=== PATIENT | male | born 1950 | race Caucasian/White ===

== ENCOUNTER 2023-06-16 23:19 | Observation (INO) | payer MEDICARE ==
[2023-06-16] MEDS ORDERED: SODIUM CHLORIDE 0.9% 1,000 ML IV STA (23:57)
--- NOTE | 2023-06-17 | ED ---
General Adult HPI - General Chief complaint: Syncope Stated complaint: Syncope Time Seen by Provider: 06/16/23 23:30 Source: patient, RN notes reviewed, old records reviewed Mode of arrival: EMS Limitations: no limitations - History of Present Illness Initial comments: 73-year-old male with syncopal episode while using the toilet. This was a brief episode approximately 1 minute according to his . He has had a diarrheal illness for the past 24 hours as well as fever. He denies respiratory symptoms. Denies abdominal pain. Denies vomiting. He has been fatigued with this illness. No chest pain. No palpitations. There was positive head trauma and the patient is complaining of neck pain. - Related Data Allergies Allergy/AdvReac Type Severity Reaction Status Date / Time No Known Allergies Allergy Verified 06/17/23 01:15 Review of Systems ROS Statement: Those systems with pertinent positive or pertinent negative responses have been documented in the HPI. ROS Other: All systems not noted in ROS Statement are negative. Past Medical History History of Any Multi-Drug Resistant Organisms: None Reported Past Psychological History: No Psychological Hx Reported Smoking Status: Never smoker Past Alcohol Use History: None Reported Past Drug Use History: None Reported General Exam Limitations: no limitations General appearance: alert, in no apparent distress Head exam: Present: other (Forehead abrasion) Eye exam: Present: normal appearance, PERRL Neck exam: Present: other (C-collar placed by paramedics) Respiratory exam: Present: normal lung sounds bilaterally. Absent: respiratory distress Cardiovascular Exam: Present: regular rate, normal rhythm GI/Abdominal exam: Present: soft. Absent: distended, tenderness, guarding, rebound Extremities exam: Present: normal inspection, normal capillary refill Neurological exam: Present: alert, oriented X3, CN II-XII intact. Absent: motor sensory deficit Psychiatric exam: Present: normal affect, normal mood Skin exam: Present: warm, dry Course Vital Signs 06/16/23 06/16/23 06/17/23 23:28 23:45 00:00 Temperature 97.7 F Pulse Rate 70 71 73 Respiratory 16 21 21 Rate Blood Pressure 136/63 136/83 127/58 O2 Sat by Pulse 97 97 97 Oximetry 06/17/23 06/17/23 06/17/23 00:15 00:30 01:00 Temperature Pulse Rate 75 74 70 Respiratory 20 20 18 Rate Blood Pressure 137/72 141/77 142/79 O2 Sat by Pulse 98 96 97 Oximetry 06/17/23 03:21 Temperature 97.8 F Pulse Rate 68 Respiratory 18 Rate Blood Pressure 118/69 O2 Sat by Pulse 98 Oximetry Medical Decision Making - Medical Decision Making Was pt. sent in by a medical professional or institution (, AMANUEL, MUCK OPERATOR, urgent care, hospital, or intermediate...) When possible be specific @ -No Did you speak to anyone other than the patient for history (EMS, parent, family, police, friend...)? What history was obtained from this source @ -No Did you review nursing and triage notes (agree or disagree)? Why? @ -I reviewed and agree with nursing and triage notes Were old charts reviewed (outside hosp., previous admission, EMS record, old EKG, old radiological studies, urgent care reports/EKG's, intermediate records)? Report findings @ -No old charts were reviewed Differential Diagnosis (chest pain, altered mental status, abdominal pain women, abdominal pain men, vaginal bleeding, weakness, fever, dyspnea, syncope, headache, dizziness, GI bleed, back pain, seizure, CVA, palpatations, mental health, musculoskeletal)? @ -[Differential Syncope: Valvular disease, hypertrophic cardiomyopathy, pulmonary embolism, tamponade, tachycardia, bradycardia, VA, hypovolemia, hemorrhage, dissection, anemia, intracranial hemorrhage, seizure, hypoglycemia, carbon monoxide poisoning, this is not meant to be an all-inclusive list. EKG interpreted by me (3pts min.). @ -Sinus rhythm rate of 74, NJ interval 200, QRS duration 111, QTC 447, no ST segment elevation. X-rays interpreted by me (1pt min.). @ -Chest x-ray negative for focal pneumonia, no acute findings. CT interpreted by me (1pt min.). @ -CT brain and cervical spine negative for traumatic injury. U/S interpreted by me (1pt. min.). @ -None done What testing was considered but not performed or refused? (CT, X-rays, U/S, labs)? Why? @ -None What meds were considered but not given or refused? Why? @ -None Did you discuss the management of the patient with other professionals (professionals i.e. , AMANUEL, MUCK OPERATOR, lab, RT, psych nurse, social sciences instructor, wave soldering machine operator, teacher, emergency response officer, case folder)? Give summary @ Sound Was smoking cessation discussed for >3mins.? @ -No Was critical care preformed (if so, how long)? @ -No Were there social determinants of health that impacted care today? How? (H omelessness, low income, unemployed, alcoholism, drug addiction, transportation, low edu. Level, literacy, decrease access to med. care, prison, rehab)? @ -No Was there de-escalation of care discussed even if they declined (Discuss DNR or withdrawal of care, Hospice)? DNR status @ -No What co-morbidities impacted this encounter? (DM, HTN, Smoking, COPD, CAD, Cancer, CVA, ARF, Chemo, Hep., AIDS, mental health diagnosis, sleep apnea, morbid obesity)? @ -None Was patient admitted / discharged? Hospital course, mention meds given and route, prescriptions, significant lab abnormalities, going to OR and other pertinent info. @73-year-old male with syncopal episode. Likely related to volume depletion from diarrhea. Patient had head trauma and momentary loss consciousness. CT brain negative for intracranial hemorrhage or mass effect, CT cervical spine negative for fracture subluxation. Patient has a macrocytic anemia. Normal white blood cell count. He has minor electrolyte abnormalities and hypoalbuminemia at 3.1. His urinalysis is negative. His viral swabs are negative. He has no extremity injury. No abdominal pain. No measured fever in the emergency department. He will be observed overnight for telemetry, hydration, and echo. Case discussed with Dr. Amaya Undiagnosed new problem with uncertain prognosis? @ -No Drug Therapy requiring intensive monitoring for toxicity (Heparin, Nitro, I nsulin, Cardizem)? @ -No Were any procedures done? @ -No Diagnosis/symptom? @ Syncope, dehydration Acute, or Chronic, or Acute on Chronic? @ Acute Uncomplicated (without systemic symptoms) or Complicated (systemic symptoms)? @ -default Side effects of treatment? @ -No Exacerbation, Progression, or Severe Exacerbation? @ -No Poses a threat to life or bodily function? How? (Chest pain, USA, VA, pneumonia, PE, COPD, DKA, ARF, appy, cholecystitis, CVA, Diverticulitis, Homicidal, Suicidal, threat to staff... and all critical care pts) @ -[Yes, syncope, arrhythmia - Lab Data Result diagrams: 06/17/23 00:15 06/17/23 00:15 Lab Results 06/17/23 06/17/23 06/17/23 Range/Units 00:15 00:15 00:15 WBC 9.5 (3.8-10.6) k/uL RBC 3.50 L (4.30-5.90) m/uL Hgb 13.5 (13.0-17.5) gm/dL Hct 39.7 (39.0-53.0) % MCV 113.4 H (80.0-100.0) fL MCH 38.5 H (25.0-35.0) pg MCHC 34.0 (31.0-37.0) g/dL RDW 15.1 (11.5-15.5) % Plt Count 120 L (150-450) k/uL MPV 8.0 Macrocytosis Marked A PT 11.4 (10.0-12.5) sec INR 1.1 (<1.2) APTT 22.7 (22.0-30.0) sec Sodium (137-145) mmol/L Potassium (3.5-5.1) mmol/L Chloride (98-107) mmol/L Carbon Dioxide (22-30) mmol/L Anion Gap mmol/L BUN (9-20) mg/dL Creatinine (0.66-1.25) mg/dL Est GFR (CKD-EPI)AfAm (>60 ml/min/1.73 sqM) Est GFR (CKD-EPI)NonAf (>60 ml/min/1.73 sqM) Glucose (74-99) mg/dL Calcium (8.4-10.2) mg/dL Magnesium (1.6-2.3) mg/dL Total Bilirubin (0.2-1.3) mg/dL AST (17-59) U/L ALT (4-49) U/L Alkaline Phosphatase (38-126) U/L Troponin I (0.000-0.034) ng/mL Total Protein (6.3-8.2) g/dL Albumin (3.5-5.0) g/dL Urine Color Yellow Urine Appearance Clear (Clear) Urine pH 5.5 (5.0-8.0) Ur Specific Randolph 1.025 (1.001-1.035) Urine Protein 1+ H (Negative) Urine Glucose (UA) Negative (Negative) Urine Ketones 1+ H (Negative) Urine Blood Small (Negative) Urine Nitrite Negative (Negative) Urine Bilirubin Negative (Negative) Urine Urobilinogen <2.0 (<2.0) mg/dL Ur Leukocyte Esterase Negative (Negative) Urine RBC 6 H (0-5) /hpf Urine WBC 1 (0-5) /hpf Hyaline Casts 7 H (0-2) /lpf Urine Mucus Few H (None) /hpf Influenza Type A (PCR) (Not Detectd) Influenza Type B (PCR) (Not Detectd) RSV (PCR) (Not Detectd) SARS-CoV-2 (PCR) (Not Detectd) 06/17/23 06/17/23 06/17/23 Range/Units 00:15 00:15 00:15 WBC (3.8-10.6) k/uL RBC (4.30-5.90) m/uL Hgb (13.0-17.5) gm/dL Hct (39.0-53.0) % MCV (80.0-100.0) fL MCH (25.0-35.0) pg MCHC (31.0-37.0) g/dL RDW (11.5-15.5) % Plt Count (150-450) k/uL MPV Macrocytosis PT (10.0-12.5) sec INR (<1.2) APTT (22.0-30.0) sec Sodium 138 (137-145) mmol/L Potassium 4.1 (3.5-5.1) mmol/L Chloride 111 H (98-107) mmol/L Carbon Dioxide 19 L (22-30) mmol/L Anion Gap 8 mmol/L BUN 24 H (9-20) mg/dL Creatinine 0.83 (0.66-1.25) mg/dL Est GFR (CKD-EPI)AfAm >90 (>60 ml/min/1.73 sqM) Est GFR (CKD-EPI)NonAf 86 (>60 ml/min/1.73 sqM) Glucose 123 H (74-99) mg/dL Calcium 7.4 L (8.4-10.2) mg/dL Magnesium 1.8 (1.6-2.3) mg/dL Total Bilirubin 0.9 (0.2-1.3) mg/dL AST 31 (17-59) U/L ALT 29 (4-49) U/L Alkaline Phosphatase 59 (38-126) U/L Troponin I <0.012 (0.000-0.034) ng/mL Total Protein 5.5 L (6.3-8.2) g/dL Albumin 3.1 L (3.5-5.0) g/dL Urine Color Urine Appearance (Clear) Urine pH (5.0-8.0) Ur Specific Randolph (1.001-1.035) Urine Protein (Negative) Urine Glucose (UA) (Negative) Urine Ketones (Negative) Urine Blood (Negative) Urine Nitrite (Negative) Urine Bilirubin (Negative) Urine Urobilinogen (<2.0) mg/dL Ur Leukocyte Esterase (Negative) Urine RBC (0-5) /hpf Urine WBC (0-5) /hpf Hyaline Casts (0-2) /lpf Urine Mucus (None) /hpf Influenza Type A (PCR) Not Detected (Not Detectd) Influenza Type B (PCR) Not Detected (Not Detectd) RSV (PCR) Not Detected (Not Detectd) SARS-CoV-2 (PCR) Not Detected (Not Detectd) Disposition Clinical Impression: Dehydration, Syncope and collapse Disposition: ADMITTED IP TO THIS [facility] Condition: Stable Is patient prescribed a controlled substance at d/c from ED?: No Referrals: None,Stated [Primary Care Provider] - 1-2 days Time of Disposition: 03:25
[2023-06-17 00:52] LABS: ALT 29 U/L (4-49); AST 31 U/L (17-59); African American GFR (CKD) >90 (>60 ml/min/1.73 sqM); Albumin 3.1 g/dL (3.5-5.0); Alkaline Phosphatase 59 U/L (38-126); Anion Gap 8 mmol/L; Blood Urea Nitrogen 24 mg/dL (9-20); Calcium 7.4 mg/dL (8.4-10.2); Carbon Dioxide 19 mmol/L (22-30); Chloride 111 mmol/L (98-107); Glucose 123 mg/dL (74-99); Magnesium 1.8 mg/dL (1.6-2.3); Non-African American GFR(CKD) 86 (>60 ml/min/1.73 sqM); Potassium 4.1 mmol/L (3.5-5.1); Sodium 138 mmol/L (137-145); Total Bilirubin 0.9 mg/dL (0.2-1.3); Total Protein 5.5 g/dL (6.3-8.2)
[2023-06-17 00:56] LABS: Basophils % (A) 0 %; Eosinophils % (A) 0 %; HCT 39.7 % (39.0-53.0); HGB 13.5 gm/dL (13.0-17.5); Lymphocytes # (A) 0.6 k/uL (1.0-4.8); Lymphocytes % (A) 6 %; MCH 38.5 pg (25.0-35.0); MCV 113.4 fL (80.0-100.0); Macrocytosis Marked; Monocytes # (A) 0.3 k/uL (0-1.0); Monocytes % (A) 4 %; Neutrophils # (A) 8.4 k/uL (1.3-7.7); Neutrophils % (A) 89 %; Platelet Count 120 k/uL (150-450); RDW 15.1 % (11.5-15.5); WBC 9.5 k/uL (3.8-10.6)
[2023-06-17 01:01] LABS: INR 1.1 (<1.2); Partial Thromboplastin Time 22.7 sec (22.0-30.0); Prothrombin Time 11.4 sec (10.0-12.5)
--- NOTE | 2023-06-17 01:01 | CT ---
EXAM: CT Head Without Intravenous Contrast CLINICAL HISTORY: ITS.REASON CT Reason: syncope TECHNIQUE: Axial computed tomography images of the head/brain without intravenous contrast. CTDI is 45.2 mGy and DLP is 1152 mGy-cm. This CT exam was performed using one or more of the following dose reduction techniques: automated exposure control, adjustment of the mA and/or kV according to patient size, and/or use of iterative reconstruction technique. COMPARISON: No relevant prior studies available. FINDINGS: No acute intracranial hemorrhage. No midline shift or mass effect. The territorial gregory-white matter differentiation is maintained throughout. Age-related cerebral volume loss. Periventricular and subcortical white matter hypoattenuation, consistent with chronic microangiopathy. The visualized orbits appear grossly unremarkable. The calvarium is intact. The visualized paranasal sinuses and mastoid air cells are grossly clear. IMPRESSION: No acute intracranial hemorrhage, midline shift, or mass effect. EXAM: CT Cervical Spine Without Intravenous Contrast CLINICAL HISTORY: ITS.REASON CT Reason: syncope TECHNIQUE: Axial computed tomography images of the cervical spine without intravenous contrast. CTDI is 18.8 mGy and DLP is 585.1 mGy-cm. This CT exam was performed using one or more of the following dose reduction techniques: automated exposure control, adjustment of the mA and/or kV according to patient size, and/or use of iterative reconstruction technique. COMPARISON: No relevant prior studies available. FINDINGS: The vertebral body heights are maintained. The craniocervical junction is intact. The atlanto-dens interval is maintained. The dens is intact. There is no spondylolisthesis. Multilevel cervical spondylosis and degenerative disc disease. Straightening of the cervical lordosis. The unenhanced neck soft tissues are grossly unremarkable. The visualized lung apices are grossly clear. IMPRESSION: No acute fracture or subluxation of the cervical spine.
--- NOTE | 2023-06-17 01:01 | XR ---
EXAM: XR Chest, 1 View CLINICAL HISTORY: ITS.REASON XR Reason: syncope TECHNIQUE: Frontal view of the chest. COMPARISON: No relevant prior studies available. FINDINGS: Lungs: Unremarkable. No consolidation. Pleural space: Unremarkable. No pneumothorax. Heart: Unremarkable. No cardiomegaly. Mediastinum: Unremarkable. Bones/joints: Unremarkable. IMPRESSION: Normal chest x-ray.
[2023-06-17 03:08] LABS: Hyaline Casts,Urine 7 /lpf (0-2); Mucus,Urine Few /hpf; RBC,Urine 6 /hpf (0-5); WBC,Urine 1 /hpf (0-5)
[2023-06-17 03:11] LABS: Appearance,Urine Clear (Clear); Bilirubin,Urine Negative (Negative); Blood,Urine Small (Negative); Color,Urine Yellow; Glucose,Urine (UA) Negative (Negative); Ketones,Urine 1+ (Negative); PH, Urine 5.5 (5.0-8.0); Protein,Urine 1+ (Negative); Specific Gravity,Urine 1.025 (1.001-1.035)
[2023-06-17 03:12] LABS: Leukocyte Esterase,Urine Negative (Negative); Nitrite,Urine Negative (Negative); Urobilinogen,Urine <2.0 mg/dL (<2.0)
[2023-06-17] MEDS ORDERED: NALOXONE 0.4 MG/ML 1 ML VIAL IV PRN (03:22)
[2023-06-17 03:52] LABS: Anisocytosis (M) Present; Poikilocytosis (M) Present
--- NOTE | 2023-06-17 04:10 | P.HPIM ---
History of Present Illness H&P Date: 06/17/23 Patient is a 73-year-old male with a PMH of hypothyroidism who presents to the emergency room after an episode of syncope with head trauma. Patient reports that over the past 2 days he has been experiencing diarrhea with a total of up to 10 bowel movements during this time. He was in [place] and traveled back yesterday. Reports that he slept most of the day yesterday and when he attempted to walk to the bathroom earlier today the last thing he remembers is walking in the restroom and his then being at his side as he woke up on the ground. She heard him fall and noted that he regained consciousness shortly after. He had immediate pain at the left side of his head. He denied experie ncing palpitations, chest discomfort, shortness of breath, nausea, or diaphoresis. Denied blood or mucous in stools. Also denied experiencing urinary incontinence or tongue biting. No prior history of seizures. No history of falls or loss of consciousness. Reports feeling diffusely weak at the time of interview. Denied further headache. Also denied visual disturbances, focal weakness, facial asymmetry, or abnormal speech. Patient reports that his last BM was prior to his loss of consciousness. He notes that diarrhea has improved significantly over the past 24 hours. Denied abdominal pain. Head/cervical spine CT in the emergency room was unremarkable. EKG revealed sinus rhythm at 74 bpm with moderate intraventricular conduction delay at [address]/T-wave changes noted as reviewed by me. Chest x-ray was unremarkable. Laboratory evaluation revealed macrocytosis of 113.4, platelet count 120, BUN 24, glucose 123, troponin less than 0.012, and unremarkable UA. ED documentation reviewed and case discussed with ED provider. Review of systems: Pertinent positives and negatives as discussed in HPI, a complete review of systems was performed and all other systems are negative. Physical examination: Vital signs reviewed General: non toxic, no distress, appears at stated age, overweight Derm: no unusual rashes/lesions, warm Head: Left frontal scalp ecchymosis, symmetric Eyes: EOMI, no lid lag, anicteric sclera, pupils equal round reactive to light ENT: Nose and ears atraumatic Neck: No cervical lymphadenopathy, trachea midline, supple Mouth: no lip lesion, mucus membranes moist Cardiovascular: S1S2 reg, no murmur, positive dorsalis pedis pulse bilateral, no edema Lungs: CTA bilateral, no rhonchi, no rales, no accessory muscle use Abdominal: soft, nontender to palpation, no guarding Ext: muscle strength 4 out of 5 in all 4 extremities grossly, no gross muscle atrophy, no contractures Neuro: CN II-XI grossly intact, no gross focal neuro deficits Psych: Alert, oriented, appropriate affect Assessment: Syncope, suspect hypotensive due to dehydration in setting of diarrhea Diarrhea, improving Macrocytosis Thromboctyopenia Chronic conditions: Hypothyroidism Imaging: Head/cervical spine CT in the emergency room was unremarkable. EKG revealed sinus rhythm at 74 bpm with moderate intraventricular conduction delay at [address]/T-wave changes noted as reviewed by me. Chest x-ray was unremarkable. Data Review: Laboratory evaluation revealed macrocytosis of 113.4, platelet count 120, BUN 24, glucose 123, troponin less than 0.012, and unremarkable UA. Plan: Cardiac monitoring Continue IV fluid with normal saline 75 mL/h Fall precautions Obtain echocardiogram Check B12 and folate levels Check stool lactoferrin C/w home meds once reconciled DVT prophylaxis: Lovenox Subq The patient is admitted with an anticipated less than 2 midnight stay for evaluation of syncope CODE STATUS: Full Code Discussed with: Patient Anticipated discharge place: Home Past Medical History History of Any Multi-Drug Resistant Organisms: None Reported Past Psychological History: No Psychological Hx Reported Smoking Status: Never smoker Past Alcohol Use History: None Reported Past Drug Use History: None Reported Medications and Allergies Allergies Allergy/AdvReac Type Severity Reaction Status Date / Time No Known Allergies Allergy Verified 06/17/23 01:15 Physical Exam Vitals: Vital Signs Temp Pulse Resp BP Pulse Ox 06/17/23 03:21 97.8 F 68 18 118/69 98 06/17/23 01:00 70 18 142/79 97 06/17/23 00:30 74 20 141/77 96 06/17/23 00:15 75 20 137/72 98 06/17/23 00:00 73 21 127/58 97 06/16/23 23:45 71 21 136/83 97 06/16/23 23:28 97.7 F 70 16 136/63 97 Intake and Output 06/16/23 06/16/23 06/17/23 14:59 22:59 06:59 Other: Weight 99.79 kg Results CBC & Chem 7: 06/17/23 00:15 06/17/23 00:15 Labs: Abnormal Lab Results - Last 24 Hours (Table) 06/17/23 06/17/23 06/17/23 Range/Units 00:15 00:15 00:15 RBC 3.50 L (4.30-5.90) m/uL MCV 113.4 H (80.0-100.0) fL MCH 38.5 H (25.0-35.0) pg Plt Count 120 L (150-450) k/uL Neutrophils # 8.4 H (1.3-7.7) k/uL Lymphocytes # 0.6 L (1.0-4.8) k/uL Macrocytosis Marked A Chloride 111 H (98-107) mmol/L Carbon Dioxide 19 L (22-30) mmol/L BUN 24 H (9-20) mg/dL Glucose 123 H (74-99) mg/dL Calcium 7.4 L (8.4-10.2) mg/dL Total Protein 5.5 L (6.3-8.2) g/dL Albumin 3.1 L (3.5-5.0) g/dL Urine Protein 1+ H (Negative) Urine Ketones 1+ H (Negative) Urine RBC 6 H (0-5) /hpf Hyaline Casts 7 H (0-2) /lpf Urine Mucus Few H (None) /hpf
[2023-06-17] MEDS: SODIUM CHLORIDE 0.9% 1,000 ML IV SCH ×2 (05:47→20:59)
[2023-06-17] MEDS: ACETAMINOPHEN TAB 325 MG TAB PO PRN (08:49)
[2023-06-17] MEDS: ENOXAPARIN 40 MG/0.4 ML SYRINGE SQ SCH (08:50)
[2023-06-17] MEDS: LEVOTHYROXINE 100 MCG TAB PO SCH (09:32)
[2023-06-17] MEDS ORDERED: CYANOCOBALAMIN 1,000 MCG/ML 1 ML VIAL IM ONE (20:00)
[2023-06-18] MEDS: ACETAMINOPHEN TAB 325 MG TAB PO PRN ×2 (02:32→08:47)
[2023-06-18] MEDS: LEVOTHYROXINE 100 MCG TAB PO SCH (06:09)
[2023-06-18] MEDS: SODIUM CHLORIDE 0.9% 1,000 ML IV SCH ×2 (06:17→08:54)
[2023-06-18] MEDS: ENOXAPARIN 40 MG/0.4 ML SYRINGE SQ SCH (08:47)
[2023-06-18 10:41] VITALS: TEMP 98.3
[2023-06-18] MEDS ORDERED: CYANOCOBALAMIN 1,000 MCG/ML 1 ML VIAL IM ONE (11:25)
--- NOTE | 2023-06-18 11:49 | P.DS ---
Providers Date of admission: 06/17/23 03:22 Expected date of discharge: 06/18/23 Attending physician: Zuleyka Amaya MD Primary care physician: Stated None Hospital Course: Patient is a 73-year-old male with a PMH of hypothyroidism who presents to the emergency room after an episode of syncope with head trauma. Patient reports that over the past 2 days he has been experiencing diarrhea with a total of up to 10 bowel movements during this time. He was in [place] and traveled back yesterday. Reports that he slept most of the day yesterday and when he attempted to walk to the bathroom earlier today the last thing he remembers is walking in the restroom and his then being at his side as he woke up on the ground. She heard him fall and noted that he regained consciousness shortly after. He had immediate pain at the left side of his head. He denied experiencing palpitations, chest discomfort, shortness of breath, nausea, or diaphoresis. Denied blood or mucous in stools. Also denied experiencing urinary incontinence or tongue biting. No prior history of seizures. No history of falls or loss of consciousness. Reports feeling diffusely weak at the time of interview. Denied further headache. Also denied visual disturbances, focal weakness, facial asymmetry, or abnormal speech. Patient reports that his last BM was prior to his loss of consciousness. He notes that diarrhea has improved significantly over the past 24 hours. Denied abdominal pain. Head/cervical spine CT in the emergency room was unremarkable. EKG revealed sinus rhythm at 74 bpm with moderate intraventricular conduction delay at [address]/T-wave changes noted. Chest x-ray was unremarkable. Laboratory evaluation revealed macrocytosis of 113.4, platelet count 120, BUN 24, glucose 123, troponin less than 0.012, and unremarkable UA. Troponins were trended and ACS was ruled out. Echocardiogram was ordered and pending at the time of this note. Telemetry showed no events. He was hydrated overnight with normal saline. He did have undetectable B12 level and was given 2 doses of IM cyanocobalmin. 06/18 Patient was seen and examined. at bedside. Able to ambulate without much difficulties. Feeling at baseline and requesting to go home. Advised to see his PCP for further B12 injections and hematology referral for workup of B12 deficiency. He lives in [place] and would like to see his PCP for further treatment/workup. His orthostats this morning was negative. His syncope is likely related to orthostatic vs vasovagal episode. Plans for discharge home today. Advised to drink plenty of water and slow positional changes. Pertinent studies include CT head, C-spine CT, Echo, EKG, CXR. Vital signs reviewed General: non toxic, no distress, appears at stated age, overweight Derm: no unusual rashes/lesions, warm Head: Left frontal scalp ecchymosis, symmetric Eyes: EOMI, no lid lag, anicteric sclera ENT: Nose and ears atraumatic Neck: No cervical lymphadenopathy, trachea midline, supple Cardiovascular: S1S2 reg, no murmur, no edema Lungs: CTA bilateral, no rhonchi, no rales, no accessory muscle use Ext: muscle strength 4 out of 5 in all 4 extremities grossly, no gross muscle atrophy, no contractures Neuro: no gross focal neuro deficits Psych: Alert, oriented, appropriate affect Discharge Diagnosis: Syncope, suspect orthostatic vs vasovagal due to dehydration in setting of diarrhea Diarrhea, improving Macrocytosis secondary to B12 deficiency Thromboctyopenia Chronic conditions: Hypothyroidism This complex discharge took 35 minutes to complete. Patient Condition at Discharge: Stable Plan - Discharge Summary Discharge Rx Participant: Yes New Discharge Prescriptions: New Cyanocobalamin (Vitamin B-12) [Vitamin B-12] 1,000 mcg PO DAILY #30 tablet Continue Levothyroxine Sodium [Synthroid] 200 mcg PO DAILY Discharge Medication List Levothyroxine Sodium [Synthroid] 200 mcg PO DAILY 06/17/23 [History] Cyanocobalamin (Vitamin B-12) [Vitamin B-12] 1,000 mcg PO DAILY #30 tablet 06/18/23 [Rx] Follow up Appointment(s)/Referral(s): None,Stated [Primary Care Provider] - 1-2 days Activity/Diet/Wound Care/Special Instructions: Diet: Regular Follow up with your PCP within 1-2 days of discharge. Follow up with your PCP for continued B12 injections. You may need to obtain a referral for a corporate secretary for further workup of your B12 deficiency. Drink plenty of water. Discharge Disposition: HOME SELF-CARE
--- NOTE | 2023-06-18 12:06 | CA ---
Transthoracic Echo Report Name: Vikas Calderon Age: 73 Gender: M : 1950 Exam Date: 06/17/2023 16:24 Exam Location: [facility] Ht (in): 72 Wt (lb): 220 Ordering Physician: Cesar Baldwin MD Attending/Referring Phys: [id number], [employer] Engineer Kirsten Leach RDCS Procedure CPT: Indications: Syncope Cardiac Hx: Technical Quality: Fair Contrast 1: Total Dose (mL): Contrast 2: Total Dose (mL): MEASUREMENTS (Male / Female) Normal Values 2D ECHO LV Diastolic Diameter PLAX 4.6 cm 4.2 - 5.9 / 3.9 - 5.3 cm LV Systolic Diameter PLAX 2.6 cm IVS Diastolic Thickness 1.1 cm 0.6 - 1.0 / 0.6 - 0.9 cm LVPW Diastolic Thickness 1.1 cm 0.6 - 1.0 / 0.6 - 0.9 cm LV Relative Wall Thickness 0.5 RV Internal Dim ED PLAX 2.8 cm LA Volume 46.7 cm??? 18 - 58 / 22 - 52 cm??? LA Volume Index 20.6 cm???/m??? 16 - 28 cm???/m??? M-MODE Aortic Root Diameter MM 3.3 cm LA Systolic Diameter MM 4.3 cm LA Ao Ratio MM 1.3 AV Cusp Separation MM 2.1 cm DOPPLER AV Peak Velocity 123.7 cm/s AV Peak Gradient 6.1 mmHg AV Mean Velocity 86.1 cm/s AV Mean Gradient 3.4 mmHg AV Velocity Time Integral 22.9 cm LVOT Peak Velocity 115.6 cm/s LVOT Peak Gradient 5.3 mmHg LVOT Velocity Time Integral 25.6 cm MV Area PHT 4.3 cm??? Mitral E Point Velocity 82.7 cm/s Mitral A Point Velocity 103.2 cm/s Mitral E to A Ratio 0.8 MV Deceleration Time 176.1 ms MV E' Velocity 8.3 cm/s Mitral E to MV E' Ratio 9.9 TR Peak Velocity 210.2 cm/s TR Peak Gradient 17.7 mmHg Right Ventricular Systolic Press 22.7 mmHg FINDINGS Left Ventricle Mildly increased left ventricular wall thickness. Left ventricular cavity size normal. Normal left ventricular systolic function with no obvious regional wall motion abnormalities. Left ventricular ejection fraction is estimated at 55-60 %. Right Ventricle Normal right ventricular size and function. Right ventricular systolic pressure within normal limits. Right Atrium Normal right atrial size. Left Atrium Normal left atrial size. Mitral Valve Structurally normal mitral valve. No mitral stenosis. No evidence for mitral valve prolapse. Mild mitral annular calcification. Trace to mild mitral regurgitation. Aortic Valve Trileaflet aortic valve. No aortic valve stenosis or regurgitation. Tricuspid Valve Structurally normal tricuspid valve. Mild tricuspid regurgitation. Pulmonic Valve Structurally normal pulmonic valve. Trace to mild pulmonic regurgitation. Pericardium No pericardial effusion. Aorta Normal size aortic root and proximal ascending aorta. CONCLUSIONS Mildly increased left ventricular wall thickness Left ventricular ejection fraction 55-60% Mild mitral regurgitation Mild mitral annular calcification Mild tricuspid regurgitation RVSP 22 Previewed by: Dr. Ernst Berman DO (Electronically Signed) Final Date: 18 June 2023 12:06
[2023-06-18 12:34] VITALS: BP 142/71; PULSE 75; RESP 18
== END 2023-06-18 13:47 | disposition home or self-care (01) ==
LOC: EC 23:19 → 3SCARD 06-17 03:22
PROVIDERS: ADMIT Internal Medicine; ATTEND Internal Medicine
DX: R55 Syncope and collapse (principal); S09.90XA Unspecified injury of head, initial encounter; W18.30XA Fall on same level, unspecified, initial encounter; D75.89 Other specified diseases of blood and blood-forming organs; E86.0 Dehydration; E86.1 Hypovolemia; F17.200 Nicotine dependence, unspecified, uncomplicated; F10.20 Alcohol dependence, uncomplicated; E03.9 Hypothyroidism, unspecified; I26.99 Other pulmonary embolism without acute cor pulmonale; E53.8 Deficiency of other specified B group vitamins
CPT/HCPCS: 96361 ×2; 96372 ×4; 96360; 99285; 36415; 93005; 93306; 82747; 80053; 82607; 83735; 84484; 85025; 85610; 85730; 81001; 87636; 71045; 72125; 70450; G0378 ×2; J3420 ×2; J1650 ×2